=== PATIENT | female | born 1985 | race African-American/Black ===

== ENCOUNTER 2018-11-28 02:51 | Emergency (ER) | payer MEDICAID ==
[~2018-11-28] VITALS: Ht 177.8 cm; Wt 77.1 kg
[2018-11-28 03:15] VITALS: BP 167/96
--- NOTE | 2018-11-28 03:15 | NUR ---
ER Nurse Note: Pt came from home c/o itchiness on her bilateral arms d/t her eczema. Pt is scraching her arms; advised pt not to. Pt a&ox4, VSS, no signs of distress. Skin intact; will continue to monitor.
--- NOTE | 2018-11-28 03:15 | Emergency Room Report ---
History of Present Illness General Chief Complaint: Skin Rash/Abscess Source: Patient Present Illness HPI The patient presents with an exacerbation of the itching of her eczema. She came in tonight because she could not sleep. She has been using hydrocortisone and Benadryl [id number]. She just received Medi-Florian and decided to come to get help. She denies fevers, dysuria, nausea, vomiting, diarrhea, productive cough, chest pain headache. Tetanus is up-to-date. Last period was normal for her. The patient has a sore on middle part of her chest that she has been using Neosporin and is getting better. Allergies: Coded Allergies: No Known Allergies (Unverified , 11/28/18) Patient History Past Medical History: see triage record Social History: Reports: smoking Social History Narrative boyfriend brought Last Menstrual Period: 11-19-2018 Now: No Reviewed Nursing Documentation: PMH: Agreed; PSxH: Agreed Review of Systems All Other Systems: negative except mentioned in HPI Physical Exam Vital Signs Date Time Temp Pulse Resp B/P (MAP) Pulse Ox O2 Delivery O2 Flow Rate FiO2 11/28/18 02:56 98.1 61 16 167/96 (119) 98 Room Air Sp02 EP Interpretation: reviewed, normal General Appearance: well appearing, no apparent distress, GCS 15 Head: normocephalic, atraumatic Eyes: bilateral eye normal inspection, bilateral eye PERRL ENT: hearing grossly normal, normal voice, moist mucus membranes Neck: full range of motion, supple Respiratory: no respiratory distress, speaking full sentences Musculoskeletal: digits/nails normal, gait/station normal, normal range of motion Neurologic: alert, oriented x3, normal gait, grossly normal Psychiatric: mood/affect normal Skin: other - Hyperpigmented eczematous changes all extremities. Skin lesion mid chest without erythema or drainage. Medical Decision Making Diagnostic Impression: Primary Impression: Eczema Qualified Codes: L20.84 - Intrinsic (allergic) eczema ER Course Presents with chronic eczema that has increased itching at this time. She is afebrile does not appear toxic. There is no evidence of infection at this time. She mainly needs to have medications. She will be given prednisone and Benadryl here. The patient is stable for outpatient observation and treatment. The patient requested Vistaril as opposed to Benadryl. Last Vital Signs Date Time Temp Pulse Resp B/P (MAP) Pulse Ox O2 Delivery O2 Flow Rate FiO2 11/28/18 03:55 98.1 78 16 167/96 98 Room Air Status: improved Disposition: HOME, SELF-CARE Condition: Improved Scripts Hydroxyzine Pamoate (VISTARIL) 25 Mg Capsule 25 MG PO Q8HR PRN for Itching/Pruritis, #14 CAP Prov: Sebastian Lara MD 11/28/18 Triamcinolone Acet (Triamcinolone Acetonide) 15 Gm Cream..g. 0.15 % APPLIC BID, #60 GM Prov: Sebastian Lara MD 11/28/18 Prednisone* (PREDNISONE*) 20 Mg Tablet 40 MG ORAL DAILY, #10 TAB Prov: Sebastian Lara MD 11/28/18 Sebastian Lara MD Nov 28, 2018 03:15
[2018-11-28] MEDS ORDERED: BENADRYL25 MG ORAL (03:18)
[2018-11-28] MEDS ORDERED: PREDNISONE20 MG ORAL (03:18)
[2018-11-28] MEDS ORDERED: KENALOG 0.5% CR15 GM APPLIC (03:18)
[2018-11-28] MEDS ORDERED: VISTARIL25 M1 PO (03:42)
[2018-11-28 03:55] VITALS: BP 167/96
--- NOTE | 2018-11-28 03:55 | NUR ---
ER Nurse Note: Pt seen, treated, medically cleared for discharge by ERMD. Discharge instuctions and prescriptions given with repeat verbalization by pt. All orders completed per ERMD orders. Pt a&ox4, VSS, no signs of distress. Pt denies pain. ID band removed. Pt ambulaitory with steady gait, left with all belongings, left with own transportation.
== END 2018-11-28 03:55 | disposition home or self-care (01) ==
LOC: EMR 03:00
DX: L30.9 Dermatitis, unspecified (principal)
CPT/HCPCS: 99282; J7512